=== PATIENT | male | born 1975 | race Caucasian/White ===

== ENCOUNTER 2024-10-14 15:26 | Emergency (ER) | payer OTHER, SELFPAY ==
[2024-10-14 15:30] VITALS: BP 178/89
[2024-10-14 15:58] LABS: Urine Albumin Negative (Neg - Trace); Urine Bilirubin Negative (Negative); Urine Character Clear (Clear); Urine Color Yellow; Urine Glucose Negative (Negative); Urine Ketone Negative (Negative); Urine Leukocyte Negative (Negative); Urine Nitrite Negative (Negative); Urine Occult Blood 1+ (Negative); Urine Urobilinogen Negative (Neg - 1+)
[2024-10-14 16:00] LABS: % Basophils 0.7 % (0-2); % Eosinophils 2.8 % (0-6); % Immature Granulocytes 0.3 % (0-0.5); % Lymphocytes 41.8 % (20.5-51.1); % Monocytes 8.9 % (1.7-9.3); % Neutrophils 45.5 % (42.2-75.2); Absolute Basophils 0.1 10^3/uL (0-0.2); Absolute Eosinophils 0.3 10^3/uL (0-0.7); Absolute Lymphocytes 4.7 10^3/uL (1.2-3.4); Absolute Neutrophils 5.1 10^3/uL (1.4-6.5); Hematocrit 44.2 % (39.0-52.0); Hemoglobin 15.6 g/dL (13.0-18.0); Mean Corp Hgb Conc. 35.3 g/dL (33.0-37.0); Mean Corpuscular Hgb 31.2 pg (27.0-31.0); Mean Corpuscular Volume 88.4 fL (80.0-94.0); Nucleated Red Blood Cells % 0 % (-); Platelet Count 247 10^3/uL (130-400); Red Cell Dist. Width 12.5 % (11.5-14.5); White Blood Cell Count 11.2 10^3/uL (4.8-10.8)
[2024-10-14 16:15] LABS: ALT (SGPT) 43 U/L (0-50); AST (SGOT) 28 U/L (17-59); Albumin 4.4 g/dl (3.5-5.0); Alkaline Phosphatase 57 U/L (38-126); Blood Urea Nitrogen 12 mg/dl (9-20); Calcium 9.6 mg/dl (8.4-10.2); Carbon Dioxide 29 mmol/L (22-30); Chloride 102 mmol/L (98-107); Glucose 95 mg/dl (70-99); Sodium 139 mmol/L (135-145); Total Bilirubin 1.7 mg/dl (0.2-1.3); Total Protein 7.6 g/dl (6.3-8.2); Urine Red Blood Cell 0-2 /HPF (0-2); Urine Squamous Cell 0-2 /LPF (Few); eGFR > 60.00
[2024-10-14 16:16] LABS: Urine Bacteria Few (Negative); Urine White Cell 0-2 /HPF (0-5)
--- NOTE | 2024-10-14 17:37 | ED.GENMED ---
History of Present Illness
General
Chief Complaint: Flank Pain
Source: patient
Exam Limitations: none
Time Seen by Provider: 10/14/24 17:20
Nursing documentation reviewed up to this point in time: agreed with
History of Present Illness
History of Present Illness:
49-year-old male presenting to the emergency department concerns of right-sided flank pain with radiation to the suprapubic region worsening over the past 5 days. Some difficulty with urination. Denies any fevers chest pain shortness of breath.
Denies similar symptoms in the past.
Review of Systems
Review of Systems
Allergies reviewed?: Yes
All Other Systems: ROS reviewed and negative except as documented in HPI and ROS
Phy Exam
Physical Exam
Physical Exam:
GENERAL: Alert , in no apparent distress
EYE: pupils equal and reactive
NECK: Supple, no significant adenopathy.
ENT: o/p clr, mmm.
CARDIAC: Regular rate and rhythm .
LUNGS: Clear breath sounds bilaterally, no acute respiratory distress, no wheezes/rales/rhonchi
ABDOMEN: Soft, without focal tenderness, no r/g, no cvat
NEUROLOGICAL: Alert and oriented, no focal neuro deficits
SKIN: Warm and dry, skin intact.
MUSCULOSKELETAL: No edema, well perfused.
PSYCH: Normal and appropriate interaction.
Course
Orders/Labs/Results
Orders:
Orders
10/14/24 15:42
Complete Blood Count/With Diff Urgent
Comprehensive Metabolic Panel Urgent
Urinalysis Reflex To Culture Urgent
Date Specimen was Collected: 10/14/24
Time Specimen was Collected: 15:30
Urine Microscopic Reflex Cult Urgent
Urine Culture Urgent
LION Source: U
Specimen Description:
Date Specimen was Collected: 10/14/24
Time Specimen was Collected: 15:30
Comment: ADD ON
10/14/24 17:31
CT Abd/pel Without Iv Or Oral Urgent
Comment:
Reason For Exam: R flank pain
10/14/24 19:48
Ketorolac [Toradol] 30 mg IM NOW STA
10/14/24 21:36
Add On - Microbiology Urgent
Tests Added?: urine culture
Abnormal Lab Results
10/14/24
15:42
WBC 11.2 H 10^3/uL
(4.8-10.8)
MCH 31.2 H pg
(27.0-31.0)
MPV 11.0 H fL
(7.4-10.4)
Absolute Lymphs (auto) 4.7 H 10^3/uL
(1.2-3.4)
Absolute Monos (auto) 1.0 H 10^3/uL
(0.1-0.6)
Total Bilirubin 1.7 H mg/dl
(0.2-1.3)
Ur Occult Blood Reflex 1+ A
(Negative)
Urine Bacteria (Reflex) Few A
(Negative)
10/14/24 15:42
10/14/24 15:42
Vital Signs
Initial and Last Documented VS:
Initial Vital Signs
Temp Pulse Resp BP Pulse Ox
98.4 F 64 18 178/89 98
10/14/24 15:30 10/14/24 15:30 10/14/24 15:30 10/14/24 15:30 10/14/24 15:30
Last Documented Vital Signs
Temp Pulse Resp BP Pulse Ox
98.4 F 68 18 158/86 98
10/14/24 15:30 10/14/24 18:47 10/14/24 18:47 10/14/24 18:47 10/14/24 18:47
MDM/Problems Addressed
MDM/Problems Addressed:
49-year-old male presenting to the emergency department today with concerns of right-sided flank pain over the past 5 days. Intermittently severe. Some associated nausea no vomiting. No fevers. No reproducible symptoms on exam. Symptoms seem
potentially consistent with kidney stone plan for CT scan for further assessment. Otherwise normal renal function 1+ blood on urinalysis. CT pending when care transitioned
*Critical Care Note
Total Time (30-74mins, 75-104mins- exclusive of procedures): Not Applicable
ED Attending Note
-
Portions of this chart may have been created with voice recognition software.� Occasional wrong word or��sound alike� substitutions may have occurred due to the inherent limitations of voice recognition software.
Discharge Plan
Departure
Patient Disposition: Home (Routine Discharge)
Date of Disposition: 10/14/24
Time of Disposition: 21:36
Patient with high blood pressure during this ER visit?: No
Condition: Fair
Covid-19: Not Applicable
Discharge Problem:
Flank pain
Instructions: Flank Pain (DC)
Referrals:
Ren Nolasco CRNP [Family Provider] - Follow up in 2-3 days
Activity Restrictions/Additional Instructions:
WE ARE NOT SURE THE CAUSE OF YOUR BACK/FLANK PAIN
YOU HAD SOME FINDIGNS OF INFLAMMATION IN THE MESENTERIC FAT BUT ON THE LEFT UPPER ABDOMEN NOT WHERE YOUR PAIN IS
YOU ALSO HAVE A SUBTLE CYST IN YOUR KIDNEY
THERE WAS NO SIGN OF KIDNEY STONE
WE SENT A CULTURE ON YOUR URINE
PLEASE FOLLOW UP WITH YOUR FAMILY DOCTOR
IT IS POSSIBLE THIS PAIN IS COMING FROM YOUR BACK
RETURN FOR : FEVER, VOMITING, WORSE PAIN, URINARY BLEEIDNG OR ANY COCNERNS.
YOUR BILIRUBIN WAS ELEVATED BUT ON REVIEW OF YOUR OLD LEVELS, IT WAS ELEVATED MORE P REVIOSULY
FOLLOW UP WITH YOUR DOCTOR ABOUT THIS
Interventions
Interventions:
*Risk Screen - Suicide Last Done: 10/14/24 15:30
*General Assessment Last Done: 10/14/24 15:30
*Neglect/Abuse Screening Last Done: 10/14/24 15:30
*ED- Fall Risk Assessment Last Done: 10/14/24 15:30
*ED COVID-19 Vaccine History Last Done: 10/14/24 15:30
*Nursing Disposition Last Done: 10/14/24 21:51
VL-Bhczve-Wnrnilmziy Assessment Last Done: 10/14/24 17:29
ED-Male Genitourinary Assessment Last Done: 10/14/24 17:29
Discharge Date and Time
Discharge Date/Time: 10/14/24 21:52
Print Language: MALAY
[2024-10-14 18:47] VITALS: BP 158/86
[2024-10-14] MEDS: TORADOL 30 MG IM (20:10)
== END 2024-10-14 21:52 | disposition home or self-care (01) ==
LOC: EMR 15:26
PROVIDERS: Emergency Medicine; EMERGENCY PHYSICIAN Emergency Medicine; FAMILY PHYSICIAN Nurse Practitioner Adult Health
DX: R10.9 Unspecified abdominal pain (principal); Z90.49 Acquired absence of other specified parts of digestive tract
CPT/HCPCS: 99284; 96372; 74176; 80053; 81003; 81015; 85025; 87086